=== PATIENT | female | born 1960 | race Caucasian/White ===

== ENCOUNTER 2016-10-05 20:06 | Inpatient (IN) | payer BC ==
[~2016-10-05] VITALS: Ht 175.3 cm; Wt 168.9 kg
--- NOTE | ~2016-10-05 | ECHO ---
Transthoracic Echocardiography Report (TTE) Demographics Patient Name KAELYN DE LUNA Date of Study 10/07/2016 Patient Number [id number] Visit Number [id number] Date of 1960 Room Number G6306 Gender Female Number Age 55 year(s) Referring Amanda Gibson Field Education Coordinator Judie Torres, Physician RT,RVT,RDCS Physician Interpreting Sixto May Director Service Physician MD Supervising Ordering Amanda Gibson MD/MLP Physician MD Nurse Stress Plate Setter Conclusions Contractility Score Summary Normal Left Ventricular contractility was noted. Summary Normal LV size and systolic function. The estimated left ventricular ejection fraction is 60-65%. Diastolic flow assessment reveals a pseudonormal pattern consistent with Grade II diastolic dysfunction . The left atrium is mildly dilated by LA volume index measurement. Moderate concentric left ventricular hypertrophy. Right ventricle appears dilated in short axis. PA appears severely dilated. Elevated VTI across PV of 40 cm. Suspect pulmonary HTN based on echo findings and the RVSP is likely an underestimate due to poor TR jet. Paradoxical septal motion consistent with right ventricle pressure and/or volume overload . Trivial posterior pericardial effusion. Mild tricuspid regurgitation by color Doppler. There is a calcified mass just beneath the IVC, noted in subcostal images, consider abdominal US or CT for further evaluation. Procedure Type of Study TTE procedure:2D Echocardiogram, M-Mode, Doppler , Color Doppler. Procedure Date Date: 10/07/2016 Start: 09:52 AM Study Location: Inpatient Portable Technical Quality: Limited visualization due to body habitus. Indications:Acute Heart Failure. Additional Indications:Respiratory distress. Appropriate Use Criteria: 9 Patient Status: Routine HR: 80 bpm BP: 131/71 mmHg M-Mode/2D Measurements LV Diastolic Dimension: 4.66 cm LV Systolic Dimension: 3.01 cm LV Septum Diastolic: 1.83 cm LV Septum Systolic: 2.2 cm LV PW Diastolic: 1.33 cm LV PW Systolic: 2.06 cm Cardiac Output: 7.26 l/min AO Root Dimension: 3 cm RV Diastolic Dimension: 2.89 cm LA Dimension: 4.1 cm EF Estimated: 65 % LA volume: 70 ml RV Base: 4.7 cm LVOT: 2.1 cm RV Mid: 4.5 cm LVOT VTI: 26.2 cm RV Length: 7.5 cm LV Stroke volume: 90.7 ml Doppler Measurements AV Peak Velocity: 2 m/s MV Peak E-Wave: 1.26 m/s AV Peak Gradient: 16 mmHg MV Peak A-Wave: 1.12 m/s AV Mean Gradient: 8 mmHg MV E/A Ratio: 1.12 LVOT Peak Velocity: 1.19 m/s MV P1/2t: 50 msec TR Gradient:13.84 mmHg PV Peak Velocity: 1.92 m/s Estimated RAP:10 mmHg PV Peak Gradient: 14.75 mmHg Estimated RVSP: 24 mmHg Estimated PASP: 23.84 mmHg E' Septal Velocity: 0.14 m/s A' Septal Velocity: 0.11 m/s MV E/E' Ratio: 8.6 Findings Left Ventricle Moderate concentric left ventricular hypertrophy. Paradoxical septal motion consistent with right ventricle pressure and/or volume overload . Right Ventricle Right ventricle not imaged well due to body habitus. Right ventricle appears dilated in short axis. Left Atrium The left atrium is mildly dilated by LA volume index measurement. Right Atrium Normal right atrial size. Mitral Valve Normal mitral valve structure and function. Aortic Valve Normal aortic valve structure and function. Tricuspid Valve Mild tricuspid regurgitation by color Doppler. Pulmonic Valve PA appears severely dilated. Pericardial Effusion Trivial posterior pericardial effusion. Miscellaneous Visualized portions of the aortic root and ascending aorta appear normal in size. Pleural Effusion No evidence of pleural effusion. Contractility Score LV regional wall motion:(0-Non visualized 1-Normal 2-Hypokinesis 3-Akinesis 4-Dyskinesis 5-Aneurysm) Signature dtt: VERONICA BOOKER dtd: 10/07/16 0952 Physician Self Edit
--- NOTE | ~2016-10-05 | PUL ---
PATIENT'S NAME: KAELYN DE LUNA [facility] AGE: 55 Y [address] ROOM: [address] [address] LOCATION: GPCU ADMIT DATE: 10/05/2016 Pulmonary DISCHARGE DATE: 10/08/2016 FAMILY PHYSICIAN: Physician, Unknown ATTENDING PHYSICIAN: David Patel NAME OF PROCEDURE: Overnight Pulse Oximetry DATE OF PROCEDURE: October 07, 2016 REASON FOR EXAM: Nocturnal hypoxemia RESULTS: The test was initially started on room air, and later 1 liter oxygen was added. The recording time was 8 hours, 55 minutes, and 52 seconds, with a total valid sampling time of 8 hours, 47 minutes, and 44 seconds. The highest pulse was 103, lowest pulse was 57, with a mean pulse of 70. The highest SpO2 was 96%, lowest SpO2 was 62%, with a mean SpO2 of 87.9%. The three longest continuous time with saturation below 88% was 1 hour 31 minute, 34 minutes and 24 minutes. The desaturation event index was 13.9. PHYSICIAN INTERPRETATION: The patient has evidence of significant nocturnal hypoxia and would qualify for supplemental oxygen as per Medicare criteria. Because of the severity of the nocturnal hypoxia with an elevated desaturation event index a sleep study would be highly recommended at this time. MD SAWYER WARD/hugo /[id number] dtt: 10/10/16 1741 JUAN A MEENAKSHI dtd: 10/09/16 1216
--- NOTE | ~2016-10-05 | ER ---
PATIENT'S NAME: CALIXTO [facility] AGE: 55 Y [address] ROOM: [address] [place], [place] [address] LOCATION: GPCU ADMIT DATE: 10/05/2016 ER/Outpatient Report DISCHARGE DATE: FAMILY PHYSICIAN: PHYSICIAN, UNKNOWN ATTENDING PHYSICIAN: CLAUDE PATEL Admission date and time documented on the medical record. I saw the patient at 2015 hours. CHIEF COMPLAINT: Shortness of breath increasing over the past 24 hours, respiratory distress. HISTORY OF PRESENT ILLNESS: This patient is a 55-year-old female, who over the past 24 hours has had increasing respiratory distress with the shortness of breath. She had no cough. No recent flus, fever, chills, sweats. Was seen yesterday in the clinic and given Levaquin and Rocephin. Continues to be short of breath today. Has some chest discomfort with deep breathing. Some nausea, but no vomiting, diarrhea, or urinary complaints. No abdominal pain. No joint or muscle swelling, redness, or pain. No skin eruptions or rash. No fall or trauma. No headache; eyes, ears, nose, throat, neck, or spine pain. No lightheadedness, dizziness, syncope, or near syncope. Does have insulin- dependent diabetes mellitus type 2. No other endocrine problems. No neuro changes or psych issues. HOME MEDICATIONS: See attached medication list. ALLERGIES: NONE. SOCIAL HISTORY: Nonsmoker, nondrinker. SIGNIFICANT PAST MEDICAL HISTORY: Hypertension, insulin-dependent diabetes mellitus type 2, bronchitis. OPERATIONS: None. REVIEW OF SYSTEMS: All systems reviewed by me are negative with exception of those discussed in the history of the present illness. PHYSICAL EXAMINATION: PATIENT'S NAME: CALIXTO [facility] AGE: 55 Y [address] ROOM: [address] [place], [place] [address] LOCATION: GPCU ADMIT DATE: 10/05/2016 ER/Outpatient Report DISCHARGE DATE: FAMILY PHYSICIAN: PHYSICIAN, UNKNOWN ATTENDING PHYSICIAN: CLAUDE PATEL VITAL SIGNS: Temperature 98.4 tympanic, pulse 81, respirations 24, blood pressure 172/77, O2 sat on 2 L oxygen per nasal cannula is 92%. HEAD: Normocephalic. EYES, EARS, NOSE, THROAT: Clear. Mucous membranes moist. NECK: Negative. SPINE: Negative. LUNGS: Basilar rales. Decreased breath sounds. A few expiratory wheezing. The patient is tachypneic. HEART: Regular. Pulses are palpable. ABDOMEN: Obese, soft, nondistended, nontender. Good bowel tones. No organomegaly or abnormal mass palpable. EXTREMITIES: With peripheral edema, nonpitting. No cyanosis. No deformity. NEURO: Intact. SKIN: Clear. VASCULAR: Intact. LABORATORY DATA AND X-RAYS: EKG showed sinus rhythm. No acute ST elevation, ischemic change, or arrhythmia. Chest x-ray showed cardiomegaly, increased vascular congestion, pulmonary edema pattern. No acute infiltrate. We will review x-ray with radiologist. LABORATORY DATA: D-dimer was elevated at 0.88. CMS was normal except for a slight low potassium of 3.4, elevated glucose 248, low calcium of 8.2. CPK was 40. Point of care cardiac enzymes were normal. CRP was 2.58. ProBNP was 371. Procalcitonin was less than 0.05. Lactate was 0.6. White count was 7200, 70 segs, 22 lymphs, 6 monos, 2 eos; hemoglobin is 11.7; hematocrit 36.4; platelet count is [id number]. Pro-time is 10 with an INR of 0.95. Arterial blood gases on 1 L of oxygen per nasal cannula showed a pH of 7.43, pCO2 of 47, PO2 of 63 with an O2 sat 92%. In view of her elevated D-dimer, we did do a CT scan of the chest with PE protocol with IV contrast. CT scan showed small bilateral pleural effusions, [id number] pulmonary edema, prominent pulmonary artery. CT scan was read by Radiology, see dictated transcribed report. EMERGENCY DEPARTMENT COURSE: I did give the patient some IV normal saline, fluids. IMPRESSION: 1. Hypoxic respiratory distress failure with pulmonary edema. The patient does have cardiomegaly and what looks like heart failure. 2. Insulin-dependent diabetes mellitus. 3. Hypertension. PLAN: PATIENT'S NAME: KAELYN DE LUNA [facility] AGE: 55 Y [address] ROOM: [place] [address] LOCATION: GPCU ADMIT DATE: 10/05/2016 ER/Outpatient Report DISCHARGE DATE: FAMILY PHYSICIAN: PHYSICIAN, UNKNOWN ATTENDING PHYSICIAN: CLAUDE PATEL Discussed the patient with Dr. Patel, the hospitalist. Dr. Patel is coming to the emergency room to evaluate the patient. We will admit the patient to the hospital for further evaluation and treatment. I did discuss with the patient my findings and recommendations, she understands. Accumulated critical care time, 30 minutes. MD TAMIKO FUENTES/waynel /[id number] d: 10/06/166 t: 10/06/161809, OUTPATIENT REPORT
--- NOTE | ~2016-10-05 | HP ---
PATIENT'S NAME: CALIXTO [facility] AGE: 55 Y [address] ROOM: [place] [address] LOCATION: GPCU ADMIT DATE: 10/05/2016 History & Physical DISCHARGE DATE: FAMILY PHYSICIAN: PHYSICIAN, UNKNOWN ATTENDING PHYSICIAN: CLAUDE CONNELL DATE OF SERVICE: CHIEF COMPLAINT: Shortness of breath. HISTORY OF PRESENT ILLNESS: A 55-year-old lady with a past medical history of hypertension, hyperlipidemia, and insulin-dependent diabetes mellitus, presented to emergency department. Initially, the chest pain which she stated is pressure- like present for past 1 week now increased with deep breathing and coughing associated with shortness of breath which had been getting progressively worse over the course of past 2-3 weeks not associated with any PND, but did endorse having leg swelling. On further inquiry, she denied any dizziness, any palpitations, any sputum production, fever, or chills, but did endorse having sick contacts and did endorse having a runny nose and runny eyes about 3-4 weeks ago. She denied any abdominal pain, constipation, diarrhea, burning on urination. REVIEW OF SYSTEMS: All other systems reviewed and were negative except what is mentioned in the HPI. ALLERGIES: NO KNOWN DRUG ALLERGIES. PAST MEDICAL HISTORY: Insulin-dependent diabetes mellitus, hypertension, hyperlipidemia. MEDICATIONS: Being reconciled right now. SOCIAL HISTORY: Never a smoker. No alcohol or drug abuse. FAMILY HISTORY: Positive for premature coronary artery disease in dad. PHYSICAL EXAMINATION: VITAL SIGNS: Blood pressure 140/76, respiratory rate 20, satting 95% on 1 L PATIENT'S NAME: KAELYN DE LUNA [facility] AGE: 55 Y [address] ROOM: [address] [place] [id number] LOCATION: GPCU ADMIT DATE: 10/05/2016 History & Physical DISCHARGE DATE: FAMILY PHYSICIAN: PHYSICIAN, UNKNOWN ATTENDING PHYSICIAN: CLAUDE CONNELL of oxygen, afebrile. GENERAL: No acute distress. Alert and oriented x3. HEAD: Atraumatic, normocephalic. EYES: Nonicteric. No pallor. OROPHARYNX: Moist mucous membranes. CARDIOVASCULAR: S1, S2. No murmurs, gallops, or rubs. LUNGS: Bilateral crackles up to mid lung fitzgerald. Equal air entry. No expiratory wheezes. ABDOMEN: Obese, soft, nontender, and nondistended. Bowel sounds present. EXTREMITIES: Reveal +1 extremity edema. PSYCH: Normal affect, mood, and speech. NEUROLOGIC: Cranial nerves 2 through 12 intact. No motor or sensory deficit. MUSCULOSKELETAL: No muscle tenderness or joint swelling noted. ENDOCRINE: No thyromegaly or myxedema noted. SKIN: No blemishes or rashes noted. DIAGNOSTIC DATA: Chest x-ray done in the emergency department showed bilateral pulmonary edema and cardiomegaly. A CT scan was also done which did reveal pulmonary edema, but no pulmonary embolism and prominent pulmonary artery. Lab work was done in the emergency department which showed ABGs pH of 7.43, pCO2 of 47, and PO2 of 63 on 1 L of oxygen, satting 92%. Lactate was normal. Accu-Chek was 267. Troponin initial set was negative. ProBNP was 371. CBC was unremarkable. BMP was impressive for potassium of 3.4 and glucose of 248. ASSESSMENT AND PLAN: 1. Acute hypoxic respiratory failure. 2. Heart failure, new clinical diagnosis. 3. Pulmonary edema. 4. Insulin-dependent diabetes mellitus. 5. Hypertension. 6. Hyperlipidemia. 7. Morbid obesity. 8. Hypokalemia. PLAN: We are going to admit this lady. She is definitely in heart failure right now and we are going to diurese her in order to bring her to euvolemia. She will need echocardiography to determine the cardiac function and she will need investigations for pulmonary hypertension as well. We will obtain appropriate consultations when needed. At this point, we are going to give her Lasix 40 x 1. Monitor I's and O's. We will decrease her dose of home insulin to insulin detemir 10 units b.i.d., sliding scale insulin. We will get HbA1c. Replace potassium. Diabetic diet. Activity as tolerated. Lovenox for DVT prophylaxis. The patient is full code. PATIENT'S NAME: KAELYN DE LUNA [facility] AGE: 55 Y [address] ROOM: [place] [address] LOCATION: GPCU ADMIT DATE: 10/05/2016 History & Physical DISCHARGE DATE: FAMILY PHYSICIAN: PHYSICIAN, UNKNOWN ATTENDING PHYSICIAN: KHALID,ARCE A MD ANGIE VALDES/teresa /[id number] D: [id number] T: [id number] HISTORY & PHYSICAL
--- NOTE | ~2016-10-05 | DS ---
PATIENT'S NAME: KAELYN DE LUNA [facility] AGE: 55 Y [address] ROOM: [address] [address] LOCATION: GPCU ADMIT DATE: 10/05/2016 Discharge Summary DISCHARGE DATE: 10/08/2016 FAMILY PHYSICIAN: Physician, Unknown ATTENDING PHYSICIAN: David Patel FINAL DIAGNOSES: 1. Acute hypoxic respiratory failure. 2. Acute diastolic congestive heart failure. 3. Severe pulmonary hypertension. 4. Exercise and nocturnal hypoxia. 5. Morbid obesity. 6. Diabetes mellitus, type 2. 7. Essential hypertension. CONSULTANTS ON THE CASE: None. HOSPITAL COURSE: Please see details of admission and H and P by Dr. Patel. Briefly, the patient was admitted with shortness of breath and was found to have acute hypoxic respiratory failure. The patient was admitted and started on some IV Lasix. Influenza was ruled out. She did undergo 2D echo. Her diabetes was covered with sliding scale insulin and Lovenox was utilized for DVT prophylaxis. On hospital day 2, the patient was feeling better in terms of her shortness of breath but still requiring oxygen to maintain sats greater than 90%. Oral Lasix was given. The patient's echo returned on the and showed normal LV size and systolic function with the estimated left ventricular ejection fraction of 60% to 65%. Diastolic dysfunction was a grade II. The left atrium was mildly dilated and the right ventricle appeared dilated with a severely dilated pulmonary artery. The patient had suspicion of pulmonary hypertension based on the echo findings and the RVSP was likely underestimated. She had paradoxical septal wall motion consistent with right ventricular pressure and/or volume overload. Incidentally noted was a calcified mass just beneath the IVC. Abdominal ultrasound or CT was recommended for evaluation. The patient is actually undergone PE protocol CT imaging without mention of any calcified mass. Dr. Mcfarlane was consulted about the findings and was not able to identify anything consistent with the echo findings. Dr. Kim was then contacted about possible consultation. She recommended outpatient followup with full pulmonary workup. On the , her blood pressures were still slightly elevated. We continued to wean her oxygen, did have simulation educator see her, and resumed her lisinopril. The patient was scheduled for a trend-ox study on the evening of 10/07/2016. This did show significant desaturation. It was also found that the patient did have significant desaturation with any activity, dropping to 86%. RT was then asked to set up both exertional and nocturnal oxygen supplementation. On the , the patient had been weaned from resting oxygen and it was felt that she PATIENT'S NAME: KAELYN DE LUNA [facility] AGE: 55 Y [address] ROOM: [place] [address] LOCATION: GPCU ADMIT DATE: 10/05/2016 Discharge Summary DISCHARGE DATE: 10/08/2016 FAMILY PHYSICIAN: Physician, Unknown ATTENDING PHYSICIAN: David Patel could safely be discharged home. The patient was in agreement and in full understanding of the discharge instructions. DIAGNOSTICS: Two views of the chest on the , shows cardiac enlargement; also perihilar, infrahilar, and bibasilar opacity reflecting pulmonary edema. CT pulmonary angiogram showed no findings of pulmonary embolism. She did have dilation of the pulmonary outflow tract consistent with pulmonary hypertension. A small pericardial fluid collection was noted and diffuse ground-glass opacity noted in the parenchyma of both lungs, reflecting edema. Chest x-ray on the , showed stable cardiomegaly, central vascular engorgement, and interstitial edema improved, but not completely resolved. No pleural effusions noted. LABORATORY DATA: Accu-Cheks range from 135 to 352. ABGs on the shows a pH of 7.43, pCO2 47, PO2 63, HCO3 31.2. Her lactate was 0.6. On admission, sodium was 142, potassium 3.4, chloride was 108, bicarb was 27, glucose 248, BUN 10, creatinine 0.7. Total bilirubin 0.6, alkaline phosphatase 119, AST 13, ALT 14. CPK was 40. CK-MB was 0.4. Troponin less than 0.04. CRP was 2.58 and proBNP was 341. Chemistries improved to the day of discharge, to be within normal range. Hemoglobin A1c was 11.3 with an estimated glucose of 277.6. On admission, white blood cell count was 7.2, hemoglobin 11.7, hematocrit 36.4, platelets 247. Coags were within normal limits. Influenza A and B were negative. D-dimer on admission was 0.88. DISCHARGE INSTRUCTIONS: The patient is discharged home. She will follow up with Ramila Sampson APRN, in 1 week. Follow up with Dr. Kim in the Pulmonary Clinic in 2 weeks and also with Dr. Billie Henderson, Endocrinology at [place]. Diet is ADA with low fat predominance. Activity: The patient is to walk as tolerated, at least 15 minutes twice daily. The patient is also to have a sleep study on 11/11/2016 and PFTs on 11/12/2016. The patient is to check in at admission. DISCHARGE MEDICATIONS: 1. Ocuvite 1 tablet daily. 2. Lasix 40 mg daily. 3. Insulin glargine 35 units subcu daily. 4. NovoLog 10 units subcu 3 times daily with meals. 5. Sliding scale as per patient's own scale. 6. Lisinopril 10 mg daily. 7. Prilosec 20 mg daily. PATIENT'S NAME: KAELYN DE LUNA [facility] AGE: 55 Y [address] ROOM: [place] [address] LOCATION: GPCU ADMIT DATE: 10/05/2016 Discharge Summary DISCHARGE DATE: 10/08/2016 FAMILY PHYSICIAN: Physician, Unknown ATTENDING PHYSICIAN: David Patel 8. Metformin 1000 mg twice daily. 9. Multivitamin 1 tab daily. 10. Simvastatin 40 mg daily. We do appreciate participating in this patient's care and thank you very much for the ability to serve her while hospitalized at [facility]. Time spent coordinating details of discharge was greater than 35 minutes of which was spent coordinating with care management, completion of medication reconciliation, and education to the patient and family on the above-mentioned diagnoses. LASHONDA GALLEGOS FOR PATRICIA SHIELDS MD DAYLIN/modl /[id number] d: 10/09/16 1304 t: 10/14/16 1829, DISCHARGE SUMMARY
[2016-10-05 20:46] LABS: BASOPHIL % 0.4 %; EOSINOPHIL # 0.1 K/uL (0.0-0.5); EOSINOPHIL % 1.9 %; HEMATOCRIT 36.4 % (33.0-46.0); HEMOGLOBIN 11.7 g/dL (10.0-15.0); IMMATURE GRANULOCYTE % 0.4 %; LYMPHOCYTE # 1.6 K/uL (0.8-4.0); LYMPHOCYTE % 21.7 %; MCHC 32.1 gm/dL (32.0-36.5); MCV 84.1 fl (83.0-98.0); MONOCYTE # 0.4 K/uL (0.0-1.0); MONOCYTE % 5.7 %; MPV 9.3 fl (9.4-12.4); NEUTROPHIL # (ANC) 5.1 K/uL (1.8-7.8); NEUTROPHIL % 69.9 %; NRBC % 0 /100WBC (0-0.00); PLATELET COUNT 247 K/uL (150-450); RBC 4.33 M/uL (3.50-5.50); RDW-CV 14.1 % (11.9-14.6); WBC 7.2 K/uL (4.0-11.0)
[2016-10-05 20:47] LABS: BICARBONATE 31.2 mmol/L (18.0-23.0); LACTATE 0.6 mEq/L (0.50-1.60); PCO2 47 mmHg (35-45); PO2 63 mmHg (80-90)
[2016-10-05 20:54] LABS: INR - (THERAPEUTIC) 0.95 (0.92-1.07)
[2016-10-05 21:11] LABS: ALBUMIN 2.9 gm/dL (3.5-5.0); ALK PHOS 119 IU/L (33-138); ALT 34 IU/L (12-78); ANION GAP 10.4 (10.0-19.0); AST 13 IU/L (10-40); BLOOD UREA NITROGEN 10 mg/dL (6-24); CALCIUM 8.2 mg/dL (8.5-10.5); CHLORIDE 108 mMol/L (96-110); CO2 27 mMol/L (22-32); CPK 40 IU/L (21-215); CREATININE 0.7 mg/dL (0.5-1.1); POTASSIUM 3.4 mMol/L (3.7-5.1); SODIUM 142 mMol/L (135-145); TOTAL BILIRUBIN 0.6 mg/dL (0.0-1.5); TOTAL PROTEIN 6.6 g/dL (6.0-8.4)
[2016-10-06] MEDS ORDERED: LASIX40 MG PO (00:32)
[2016-10-06] MEDS ORDERED: PRILOSEC20 MG PO (00:32)
[2016-10-06] MEDS ORDERED: PRINIVIL OR ZES10 MG PO (00:33)
[2016-10-06] MEDS ORDERED: METFORMIN HCL500 MG PO (00:35)
[2016-10-06] MEDS ORDERED: TOUJEO SOL300 UNIT/1 SUB-Q (00:40)
[2016-10-06] MEDS ORDERED: NOVOLOG100 UNIT/M SUB-Q (00:42)
[2016-10-06] MEDS ORDERED: OCUVITE EYE +1 EACH PO (00:44)
[2016-10-06] MEDS ORDERED: MULTIVITAMINS1 EAC2 PO (00:45)
--- NOTE | 2016-10-06 01:20 | NUR ---
PATIENT HAS BEEN HAVING SOB X 5 DAYS. YESTERDAY SHE WENT TO HER PA AND WAS GIVEN A SHOT OF ROCEPHIN AND PLACED ON AN ORAL ANTIBOTIC. TODAY HER SOB OF INCREASE AND SHE CALLED EMS. IN ROUTE SHE HAD A BREATHING TX,GIVEN IV STEROID, AND PLACED ON O2. IN THE ER SHE HAD A CT R/O PE, 1L IV FLUIDS, AND ZOFRAN. ON ADMISSION SHE IS A/OX3. VSS ON 2L NC. UP STANDBY ASSIST. IV TO LT WRIST SALINE LOCKED. LUNGS SLIGHTLY COURSE IN BASES. BOWEL SOUNDS HYPOACTIVE, CHRONIC CONTIPATION LAST BM 10/04. GENERALIZED EDEMA, LOWER EXTREMITIES +2. IV LASIX GIVEN AND PO K. TO HAVE ECHO IN AM.
--- NOTE | 2016-10-06 19:28 | NUR ---
Significant Event: A/O X3, SBA in room, up in chair, voids per toilet, no BM, good appetite, lungs slight coarse BLL, o2 1l/nc, denies SOB, L)wrist saline lock, edema BLE, Follow up: ECHO in a.m.
--- NOTE | 2016-10-07 04:10 | NUR ---
Significant Event: A/0X3. UP AB LUCIAN IN ROOM. TURNS SELF. AFEBRILE. VSS ON 1L. DENIES PAIN. IV TO L) WRIST SL. VOIDED 1300 MLS. NO BM THIS SHIFT. ECHO THIS AM. Follow up: CONTINUE WITH PLAN OF CARE.
[2016-10-07 04:52] LABS: ALBUMIN 2.9 gm/dL (3.5-5.0); ANION GAP 11.9 (10.0-19.0); BLOOD UREA NITROGEN 15 mg/dL (6-24); CALCIUM 8.5 mg/dL (8.5-10.5); CHLORIDE 107 mMol/L (96-110); CO2 28 mMol/L (22-32); CREATININE 0.6 mg/dL (0.5-1.1); MAGNESIUM 2.4 mg/dL (1.8-2.6); PHOSPHORUS 3.7 mg/dL (2.5-4.9); POTASSIUM 3.9 mMol/L (3.7-5.1); SODIUM 143 mMol/L (135-145)
[2016-10-07] MEDS ORDERED: ZOCOR40 MG PO (11:37)
[2016-10-07] MEDS ORDERED: LEVAQUIN 750 M750 MG PO (11:37)
--- NOTE | 2016-10-07 12:41 | NUR ---
Diabetes center note: Current A1C on admission was 11.3 %. Patient reports that she did have an A1C about a month ago and it was also elevated. Discussed with patient the importance of proper control of blood sugars to reduce risks of complications related to diabetes, heart, eyes, kidneys and nerves. Home meds for diabetes Metformin 500 mg QID, Toujeo 30 units daily and Novolog as per her sliding scale, but had not been carb counting. Briefly discussed that Novolog insulin to carb at meals plus a sliding scale would assist in acheiving better control of blood sugars, will make that recommendation and educate patient on details later today. Patient is provided with the Diabetes management booklet and encouraged to start completing the Diabetes Survival Skills Assessmenet form.
--- NOTE | 2016-10-07 15:19 | NUR ---
Diabetes Center note: [id number] Detailed Diabetes Education provided, patient had completed the Diabetes survival skills assessment form and CDE provides education based on what questions that she had. Patient reports that she works nights (11 p.m. to 7 :00 a.m.) and sometimes it is difficult to eat at regular times, we discussed importance of 3 meals and snacks every day and details of carb counting. At this time, they have added 10 units of Novolog at each meal, plus sliding scale, we will continue to trend blood sugars, and if necessary recommend that insulin to carb to start to improve blood sugar control. CDE did recommend for patient to return to [facility] in near future for on-going evaluation of her blood sugars since they are adding meal time doses of Novolog. Patient states she will see what her work schedule allows when she returns, and will call do let CDE know if this is feasible. Hypoglycemia signs and symptoms discussed with proper treatment of same. Reviewed action of Toujeo and Novolog insulin, site rotation and importance on the timing of insulin injections. A1C will be due end of December,, again emphasized the need for goal of 7 % A1C to reduce risks of complications related to diabetes. Emphasized importance of daily foot care and dental exams. Will continue to follow up on 10.08.16 See attached to chart the Diabetes Survival Skills Assessment Form.
--- NOTE | 2016-10-07 15:39 | NUR ---
Introduced self and role of care management to pt. Pt lives in [place] with her and they do not have children. She states she is independent with cares and denies any post discharge needs at this time.
--- NOTE | 2016-10-07 19:50 | NUR ---
Significant Event: A/O X3, SBA, SOB Ambulating in hardy, weaned to room air O2 sat 91-93%, lungs clear, shallow respirations, showered this afternoon, up in chair most of shift, voids per toilet, saline lock R)hand, good appetite Follow up: plan for trend Ox tonight, accuchecks possible discharge home tomorrow
--- NOTE | 2016-10-08 04:58 | NUR ---
A/O. HR 70-90s. SBP 140-160s. ROOM AIR DAY. TREND OX TONIGHT. 1L APPLIED FOR DESTAT. UP AD LUCIAN IN ROOM. DENIES PAIN. SLEPT IN CHAIR. POSSIBLE DISMISSAL TODAY.
--- NOTE | 2016-10-08 10:19 | NUR ---
[facility] note: 0930 Reviewed carb counting with patient, patients asks appropriate questions and reveiwed importance of regular meals/snack times and reviewed written materials and menus she used here in the hospital. Will also submit an RD consult, as patient has questions regarding protein and sodium. On 09/27/16 a set dose of 10 units of Novolog was ordered at meals continuing to follow blood sugar results. Encouraged patient to either have on-going education with the dieititan that she has seen in the past, or to call the [facility] for on-going evaluation of blood sugars and dietary/weight management. Patient is in agreement to this. Possibly dismissal today
[2016-10-08] MEDS ORDERED: NOVOLOG100 UNIT/M SUB-Q (11:47)
[2016-10-08] MEDS ORDERED: OXYGEN M-15 (13:16)
--- NOTE | 2016-10-08 13:56 | NUR ---
ANSWERED PT'S QUESTIONS REGARDING CARBOHYDRATE ALLOWANCE AND PROTEIN NEEDS. STRONGLY ENCOURAGED PT TO F/U W/ OUTPATIENT DIETITIAN FOR FURTHER ED ON DIABETIC DIET. PHONE # GIVEN, ENCOURAGED TO CALL W/ QUESTIONS. DISCHARGE TODAY.
--- NOTE | 2016-10-08 15:21 | NUR ---
D:Patient ambulated in hallway with RT, O2 sats drop to 86%, rebounds fairly quickly. Is being instructed to wear O2 with activity and night. Doesn't need O2 at rest, her sats were 95%. Patient has personal belongings. Verbelizes understanding of discharge instructions, and follow up appts. They verbelize understanding of picking O2 up from supplier. Discharged at 1345, per w/c per [place] [facility], released to to return home. Has personal belongings.
[2016-10-25] MEDS ORDERED: TRULICITY1.5 MG/0.5 SUB-Q (06:42)
== END 2016-10-08 13:45 | disposition disaster alternative care site (69) | DRG 291 ==
LOC: GMED 20:06 → GPCU 23:23
PROVIDERS: Emergency Medicine; ADMIT Internal Medicine
PROC: B246ZZZ Ultrasonography of Right and Left Heart (ICD-10-PCS; principal; 2016-10-07)
PROC: 3E0234Z Introduction of Serum, Toxoid and Vaccine into Muscle, Percutaneous Approach (ICD-10-PCS; principal; 2016-10-07)
PROC: 3E0F7GC Introduction of Other Therapeutic Substance into Respiratory Tract, Via Natural or Artificial Opening (ICD-10-PCS; principal; 2016-10-07)
DX: I11.0 Hypertensive heart disease with heart failure (principal); J96.01 Acute respiratory failure with hypoxia; Z68.43 Body mass index [BMI] 50.0-59.9, adult; G47.34 Idiopathic sleep related nonobstructive alveolar hypoventilation; I27.2 Other secondary pulmonary hypertension; E11.65 Type 2 diabetes mellitus with hyperglycemia; E66.01 Morbid (severe) obesity due to excess calories; I50.31 Acute diastolic (congestive) heart failure; Z79.4 Long term (current) use of insulin; Z23 Encounter for immunization
CPT/HCPCS: G0009; J1650; J1940; J2405; J2930; J7030; Q9967

== ENCOUNTER → 2016-10-05 | Outpatient (CLI) | payer BC ==
[~2016-10-05] MED LIST: LASIX40 MG PO; LEVAQUIN 750 M750 MG PO; METFORMIN HCL500 MG PO; MULTIVITAMINS1 EAC2 PO; NOVOLOG100 UNIT/M SUB-Q; OCUVITE EYE +1 EACH PO; OXYGEN M-15; PRILOSEC20 MG PO; PRINIVIL OR ZES10 MG PO; TOUJEO SOL300 UNIT/1 SUB-Q; TRULICITY1.5 MG/0.5 SUB-Q; ZOCOR40 MG PO
== END | disposition disaster alternative care site (69) ==
LOC: GAMB 19:30
DX: R06.9 Unspecified abnormalities of breathing (principal); R07.9 Chest pain, unspecified; E11.9 Type 2 diabetes mellitus without complications
CPT/HCPCS: J2405; J2930

== ENCOUNTER → 2016-10-22 | Outpatient (CLI) | payer BC ==
[2016-10-22 11:26] LABS: BASOPHIL # 0.1 K/uL (0.0-0.2); BASOPHIL % 0.8 %; EOSINOPHIL # 0.2 K/uL (0.0-0.5); HEMATOCRIT 41.8 % (33.0-46.0); HEMOGLOBIN 13.3 g/dL (10.0-15.0); IMMATURE GRANULOCYTE % 0.3 %; LYMPHOCYTE # 1.2 K/uL (0.8-4.0); MCH 26.4 pg (27.0-34.0); MCHC 31.8 gm/dL (32.0-36.5); MCV 83.1 fl (83.0-98.0); MONOCYTE # 0.4 K/uL (0.0-1.0); MONOCYTE % 6.6 %; MPV 9.1 fl (9.4-12.4); NEUTROPHIL # (ANC) 4.2 K/uL (1.8-7.8); NEUTROPHIL % 69.3 %; NRBC % 0 /100WBC (0-0.00); RBC 5.03 M/uL (3.50-5.50); WBC 6.1 K/uL (4.0-11.0)
[2016-10-22 11:29] LABS: PLATELET COUNT 375 K/uL (150-450)
[2016-10-22 11:39] LABS: ANION GAP 11.1 (10.0-19.0); CREATININE 0.8 mg/dL (0.5-1.1); POTASSIUM 4.1 mMol/L (3.7-5.1)
== END ==
LOC: LNHI 11:22
PROVIDERS: Internal Medicine Interventional Cardiology
DX: I11.0 Hypertensive heart disease with heart failure (principal); E78.5 Hyperlipidemia, unspecified; I50.20 Unspecified systolic (congestive) heart failure

== ENCOUNTER → 2016-10-28 | Outpatient (CLI) | payer BC ==
--- NOTE | ~2016-10-28 | PUL ---
PATIENT'S NAME: KAELYN DE LUNA [facility] AGE: 56 Y [address] ROOM: [place] [address] LOCATION: [facility] ADMIT DATE: 10/28/2016 Pulmonary DISCHARGE DATE: FAMILY PHYSICIAN: MARY QUINTERO ([place]) ATTENDING PHYSICIAN: Becky Alvarado NAME OF PROCEDURE: Sleep study PROCEDURE DATE: 10/28/16 TECH: AURORA Freeman TEST #: [facility] [place] [id number] TECHNICAL PARAMETERS: The patient was studied using [employer] 10/20 measuring system. While the patient was studied, there was continuous monitoring of EEG (8 leads), EOG (2 leads), EKG (3 leads), submental EMG (3 leads), tibial (4 leads), respiratory inductive plethysmography (RIP) for thoracic and abdominal effort, oral and nasal airflow with a thermocouple and pressure transducer, and oximetry. The sterilization technician also performed visual and auditory observations noting things like body position, patient's status, breath sounds, artifact, snoring level and patient comments. Continuous sound was monitored using a 2-way speaker system and video monitoring was performed using an infrared camera. Review of the entire study was performed epoch by epoch utilizing a single epoch and multiple epoch capability sleep system. MEDICAL HISTORY: The patient is a 56-year-old overweight woman with daytime sleepiness and snoring. SLEEP STAGE SUMMARY: The patient was studied for 453 minutes of which she slept 396 minutes. She fell asleep in 17 minutes and slept for 88% of the night. Sleep architecture revealed a decline in slow wave and REM sleep. RESPIRATORY SUMMARY: Oxygen saturations ranged from 85-90%. There were 7 apneas and 14 hypopneas for an apnea/hypopnea index normal at 3.2 events per hour. Oxygen saturations were below 88% for 29 minutes. EKG SUMMARY: Average heart rate during sleep 85 beats per minute. LIMB MOVEMENT SUMMARY: Periodic limb movements were noted. The majority were not associated with arousals and may not be clinically relevant. SUMMARY: 1. Mild nocturnal hypoxemia. 2. Possible periodic limb movement disorder. PATIENT'S NAME: KAELYN DE LUNA [facility] AGE: 56 Y [address] ROOM: [place] [address] LOCATION: [facility] ADMIT DATE: 10/28/2016 Pulmonary DISCHARGE DATE: FAMILY PHYSICIAN: MARY QUINTERO ([place]) ATTENDING PHYSICIAN: Becky Alvarado PLAN: Patient will receive results from the ordering provider. MD JAMIL WOOTEN/concetta /[id number] dtt: 10/30/16 1459 , dtd:
== END | disposition disaster alternative care site (69) ==
LOC: GSLP 19:54
DX: J96.01 Acute respiratory failure with hypoxia (principal); I11.0 Hypertensive heart disease with heart failure; I50.31 Acute diastolic (congestive) heart failure; I27.2 Other secondary pulmonary hypertension; E66.01 Morbid (severe) obesity due to excess calories; E11.9 Type 2 diabetes mellitus without complications; J96.10 Chronic respiratory failure, unspecified whether with hypoxia or hypercapnia; G47.19 Other hypersomnia